=== PATIENT | male | born 1955 | race Caucasian/White ===

== ENCOUNTER 2024-12-17 19:29 | Emergency (ER) | payer MEDICARE, SELFPAY ==
--- NOTE | ~2024-12-17 | US_ITS ---
CLINICAL HISTORY: swelling pain to LLE Venous duplex ultrasound left lower extremity Comparison: None provided Findings: The visualized deep veins are fully compressible with normal Doppler color flow and spectral tracings. No popliteal cyst. IMPRESSION: 1. Negative for left lower extremity deep vein thrombosis. This document has been electronically signed by: Sujatha Carpenter MD on 12/17/2024 21:26:15
[2024-12-17 19:58] VITALS: BP 150/72; PULSE 63; RESP 17; TEMP 36.5; O2SAT 99; BMI 29.7
--- NOTE | 2024-12-17 19:58 | ED.GENADULT ---
HPI - General Adult General Chief complaint: Extremity Injury, Lower Stated complaint: bug bite lt leg, swelled up/pain Time Seen by Provider: 12/18/24 01:43 Source: patient Mode of arrival: ambulatory Limitations: no limitations History of Present Illness ED Provider: Florentino SINGH HPI narrative: The patient is a 69-year-old male presenting to the ED reporting Sunday he was working in his yd, sitting on the ground, when he shifted and felt a bite or sting on his left lateral funez. The patient reports since that time he has developed worsening itching, warmth, and tenderness to palpation. Patient denies associated fever/chills, nausea, vomiting, or other systemic complaint. The patient states he did not see any specific insect or other causative factor. Related Data Previous Rx's ?Medication ?Instructions ?Recorded acetaminophen 500 mg capsule 1,000 mg (2 x 500 mg) PO .q8 PRN 12/18/24 fever or pain #30 caps cephalexin 500 mg capsule 500 mg PO QID #28 caps 12/18/24 ibuprofen 600 mg tablet 600 mg PO Q8H PRN fever or pain 12/18/24 #30 tabs Allergies Allergy/AdvReac Type Severity Reaction Status Date / Time No Known Allergies Allergy Verified 12/17/24 20:01 Review of Systems Review of Systems: Yes all other systems are reviewed and are negative PMFSH Social History Social History Alcohol intake: current Alcohol intake frequency: holidays/special occasions only Physical Exam ED Exam Exam: CONSTITUTIONAL: The patient appears non-toxic, well nourished and in no acute distress. Vital signs as documented. HEAD: Atraumatic, normocephalic. EYES: EOMs grossly intact, pupils equal, conjunctiva clear, no exudate. ENT: Nares patent, no discharge. Airway patent, no audible stridor, visible mucosa is pink and moist without noted lesions. NECK: trachea is midline, no obvious masses or gross abnormalities. CHEST: Symmetric movement, normal appearance. LUNGS: Non-labored work of breathing. CARDIAC: No evidence of hypoperfusion. ABDOMEN: Nondistended, no obvious injury. : Deferred. EXTREMITIES: There is mild erythema and tenderness to palpation noted to the anterolateral aspect of the distal half of the left lower leg with 3-4 punctate scabbed areas noted immediately superior to the anterolateral aspect of the left ankle. There is no fluctuance or open lesion, no drainage, and no necrosis. Distal CSM is intact, 2+ DP/PT pulses. Moves all extremities spontaneously without reported pain. No other obvious injury or deformity noted. NEURO: Alert and oriented x3, CN II-XII appear grossly intact. Cerebellar Functioning grossly intact. Speech clear and appropriate. SKIN: Warm, dry, color appropriate. No rashes or lesions noted. Vital Signs: Vital Signs - 24 hr 12/17/24 19:58 12/18/24 00:40 Temperature 97.7 F 98.9 F Pulse Rate 63 62 Respiratory Rate 17 16 Blood Pressure 150/72 H 151/78 H Pulse Oximetry 99 96 Oxygen Delivery Method Room Air BMI result Body Mass Index 29.7 Course Course Course Narrative: This is a Rapid Medical Examination (RME) performed by Andrea Reyes PA-C in triage. Full HPI, ROS, assessment and treatment plan per primary provider in the Main ED. Hx: 69 yo M here for eval of acute onset LLE pain/swelling which began while doing yardwork outside. States he may have been bitten by an insect however he did not see any insect bite him. recently moved here from [place]. PE/vitals: noted swelling to left lower leg, difficulty with exam d/t overlying tattoos, warm/ ttp/ firm Plan: labs, venous duplex. Medical Decision Making Medical Decision Making [facility] Narrative: 2:13 AM 12/18/2024 (Andrea SINGH): The patient is a 69-year-old male presenting to the ED reporting Sunday he was working in his yd, sitting on the ground, when he shifted and felt a bite or sting on his left lateral funez. The patient reports since that time he has developed worsening itching, warmth, and tenderness to palpation. Patient denies associated fever/chills, nausea, vomiting, or other systemic complaint. The patient states he did not see any specific insect or other causative factor. The patient's exam reveals erythema and warmth of the distal half of the anterolateral left lower extremity, no fluctuance or open injury. There are a few scabbed abrasions noted to the anterolateral aspect of the distal 3rd of the left lower leg, immediately superior to the ankle, patient however denies this as the location of the stinging sensation. Patient states the scabbed area is due to excoriation. The patient was evaluated with laboratory workup and ultrasound, laboratory evaluation shows no leukocytosis, significant anemia, electrolyte abnormality, or JORGITO. The patient's LFTs are unremarkable. Patient's presentation consistent with cellulitis, we will treat with cephalexin and OTC analgesics. Lab Data 12/17/24 20:41 12/17/24 20:41 Labs: Lab Results 12/17/24 Range/Units 20:41 WBC 8.9 (4.8-10.8) X10*3/uL RBC 4.36 L (4.60-5.80) X10*6/uL Hgb 13.7 L (14.0-18.0) g/dl Hct 39.5 L (42.0-52.0) % MCV 90.6 (80.0-98.0) fL MCH 31.4 (27.0-33.0) pg MCHC 34.7 (31.0-36.0) g/dl RDW 14.7 (11.0-16.0) % Plt Count 244 (160-400) X10*3/uL MPV 9.8 (9.4-12.4) fL Immature Gran % (Auto) 0.2 (0.0-0.4) % Neut % (Auto) 61.6 (45-73) % Lymph % (Auto) 26.9 (20-40) % [place] % (Auto) 8.0 (2-11) % Eos % (Auto) 3.0 (0-4) % Baso % (Auto) 0.3 (0-2) % Lymph # (Auto) 2.4 (1.2-4.9) X10*3/uL [place] # (Auto) 0.7 (0.1-1.2) X10*3/uL Eos # (Auto) 0.3 (0.0-0.4) X10*3/uL Baso # (Auto) 0.0 (0.0-0.2) X10*3/uL Abs Immat Gran (auto) 0.02 (0.00-0.03) X10*3/uL Absolute Neuts (auto) 5.5 (2.0-8.3) x10*3/uL Absolute Nucleated RBC 0.000 (0.0-0.012) X10*3/uL Nucleated RBC % (auto) 0.0 (0.0-0.2) /100WBC Sodium 145 (135-145) mmol/L Potassium 3.7 (3.3-5.1) mmol/L Chloride 112 H (96-108) mmol/L Carbon Dioxide 26 (22-29) mmol/L Anion Gap 11 L (12-20) BUN 21 H (9-16) mg/dL Creatinine 0.96 (0.5-1.4) mg/dL Estim Creat Clear Calc 80.7 Estimated GFR > 60 Random Glucose 76 (60-115) mg/dL Calcium 9.0 (8.4-10.2) mg/dL Total Bilirubin 0.5 (0.0-1.0) mg/dL AST 29 (5-37) U/L ALT 30 (0-40) U/L Alkaline Phosphatase 96 (39-117) U/L Total Protein 6.7 (6.5-8.0) g/dL Albumin 4.0 (3.5-5.0) g/dL Discharge Plan Discharge Clinical Impression: Cellulitis Qualifiers: Site of cellulitis: extremity Site of cellulitis of extremity: lower extremity Laterality: left Qualified Code(s): L03.116 - Cellulitis of left lower limb Patient Disposition: Home, Self-Care Instructions: Cellulitis (ED) Additional Instructions: Thank you for choosing [facility]'s Emergency Department for your care today. Thankfully your laboratory evaluation and ultrasound today show no evidence of a systemic infection or blood clot. At this time there is no indication for admission to the hospital or continued ED observation, and it is safe to discharge you home. Your presentation and exam is consistent with cellulitis, an infection of your skin. There is no evidence of an associated abscess. It is not entirely clear what caused your infection. You may take alternating (staggered) doses of ibuprofen 600mg and Tylenol 1000mg every 4 hours as needed for any additional pain. Please rest the injured area, and apply ice for 20 minutes every hour. Please stay well hydrated and get plenty of rest. Please take cephalexin as prescribed until it is finished. Please follow up with your primary care physician for re-evaluation, additional management of your symptoms, and continued preventative care. If you do not have a primary care physician, please call the [facility] at [phone] to establish a new primary care physician. While waiting to establish your new primary care physician, you can call our [facility] at [phone] for non-emergency needs. Please return to the emergency department if you develop a severe or sudden change in your symptoms, a fever over 100.4 that does not improve with Tylenol or Ibuprofen, recurrent vomiting, worsening symptoms despite 3 days of treatment with antibiotics, or any other new or worsening symptoms or concerns. Prescriptions: New ibuprofen 600 mg tablet 600 mg PO Q8H PRN (Reason: fever or pain) Qty: 30 0RF acetaminophen 500 mg capsule 1,000 mg PO .q8 PRN (Reason: fever or pain) Qty: 30 0RF cephalexin 500 mg capsule 500 mg PO QID Qty: 28 0RF Print Language: Indonesian
[2024-12-17 20:45] LABS: MANUAL DIFF FLAG NO
[2024-12-17 20:50] LABS: Hematocrit 39.5 % (42.0-52.0); Hemoglobin 13.7 g/dl (14.0-18.0); Imm Gran Abs Auto 0.02 X10*3/uL (0.00-0.03); Imm Gran Pct Auto 0.2 % (0.0-0.4); Lymphocytes Absolute Auto 2.4 X10*3/uL (1.2-4.9); Mean Corpuscular HGB Conc 34.7 g/dl (31.0-36.0); Mean Corpuscular Hemoglobin 31.4 pg (27.0-33.0); Mean Corpuscular Volume 90.6 fL (80.0-98.0); NRBC Abs Auto 0.000 X10*3/uL (0.0-0.012); NRBC Pct Auto 0.0 /100WBC (0.0-0.2); Platelet Count 244 X10*3/uL (160-400); Red Blood Count 4.36 X10*6/uL (4.60-5.80); White Blood Count 8.9 X10*3/uL (4.8-10.8)
[2024-12-17 20:58] LABS: Alanine Aminotransferase 30 U/L (0-40); Albumin Level 4.0 g/dL (3.5-5.0); Alkaline Phosphatase 96 U/L (39-117); Anion Gap 11 (12-20); Aspartate Amino Transferase 29 U/L (5-37); Blood Urea Nitrogen 21 mg/dL (9-16); Calcium 9.0 mg/dL (8.4-10.2); Carbon Dioxide 26 mmol/L (22-29); Chloride 112 mmol/L (96-108); Creatinine Clr Calc Pharmacy 80.7; Estimated Glomerular Filt Rate > 60; Potassium 3.7 mmol/L (3.3-5.1); Sodium 145 mmol/L (135-145); Total Protein 6.7 g/dL (6.5-8.0)
[2024-12-18 00:40] VITALS: BP 151/78; PULSE 62; RESP 16; TEMP 37.2; O2SAT 96
--- NOTE | 2024-12-18 00:46 | PC.NURSE ---
pt has warmth to left funez along with significant pain to the area
[2024-12-18 02:11] VITALS: BP 128/65; PULSE 62; RESP 17; TEMP 36.4; O2SAT 95
[2024-12-18 02:16] VITALS: BP 128/65; PULSE 62; RESP 17; TEMP 36.4; O2SAT 95
== END 2024-12-18 02:17 | disposition home or self-care (01) ==
PROVIDERS: Physician Assistant Medical; Emergency Provider Emergency Medicine
DX: L03.116 Cellulitis of left lower limb (principal)
CPT/HCPCS: 36415; 80053; 85025; 93971; 99284

== ENCOUNTER → 2024-12-17 19:59 | Outpatient (BNV) | payer MEDICARE, BC, SELFPAY | PROVIDERS: Visit Provider Nuclear Medicine | DX: R22.42 Localized swelling, mass and lump, left lower limb (principal) | CPT/HCPCS: 93971 ==